=== PATIENT | female | born 1950 | race Caucasian/White ===

== ENCOUNTER 2020-02-09 10:07 | Outpatient (CLI) | payer MEDICARE, SELFPAY ==
[2020-02-09 10:34] LABS: Basophils Absolute Auto 0.04 K/mm3 (0.00-0.10); Basophils Percent Auto 0.6 % (0.0-1.0); Eosinophils Absolute Auto 0.24 K/mm3 (0.02-0.50); Eosinophils Percent Auto 3.5 % (1.0-6.0); Hematocrit 45.3 % (35.0-42.0); Hemoglobin 14.8 g/dL (11.7-13.8); Immature Granulocyte Absolute 0.01 K/mm3 (0.00-0.00); Immature Granulocyte Percent A 0.1 % (0.0-0.0); Lymphocytes Absolute Auto 1.58 K/mm3 (1.10-4.50); Lymphocytes Percent Auto 23.1 % (18.0-42.0); Mean Corpuscular HGB Conc 32.7 g/dL (32.0-36.0); Mean Corpuscular Volume 91.9 fL (78.0-102.0); Mean Platelet Volume 10.2 fl (9.2-11.8); Monocytes Absolute Auto 0.62 K/mm3 (0.10-0.90); Monocytes Percent Auto 9.1 % (2.0-11.0); Neutrophils Absolute Auto 4.4 K/mm3 (1.7-7.2); Neutrophils Percent Auto 63.6 % (50.0-70.0); Platelet Count Result 206 K/mm3 (150-420); Red Blood Count 4.93 M/mm3 (4.20-5.40); White Blood Count 6.9 K/mm3 (4.8-10.8)
[2020-02-09 11:11] LABS: Alanine Aminotransferase 20 U/L (14-59); Albumin Level 3.7 g/dL (3.4-5.0); Alkaline Phosphatase 110 U/L (46-116); Anion Gap 8.7 mmol/L (7-16); Aspartate Amino Transferase 22 U/L (15-37); Bilirubin,Total 0.5 mg/dL (0.00-1.00); Blood Urea Nitrogen 16 mg/dL (7-18); Calcium 9.7 mg/dL (8.5-10.1); Carbon Dioxide 33 mmol/L (21-32); Chloride 101 mmol/L (98-108); Cholesterol 179 mg/dL (0-200); Estimated Glomerular Filt Rate 53; Glucose 83 mg/dL (70-99); HDL Direct 108 mg/dL (40-60); LDL Cholesterol Calculated 61 mg/dL (<130); Osmolality Calculated 288 mOsm/kg (285-295); Potassium 3.7 mmol/L (3.5-5.1); Sodium 139 mmol/L (136-145); Total Protein 7.4 g/dL (6.4-8.2); Triglycerides 52 mg/dL (0-150)
== END 2020-02-09 10:08 | disposition home or self-care (01) ==
PROVIDERS: PCP Nurse Practitioner Family; Visit Provider Nurse Practitioner Family
DX: E78.5 Hyperlipidemia, unspecified (principal); I10 Essential (primary) hypertension; Z00.00 Encounter for general adult medical examination without abnormal findings
CPT/HCPCS: 36415; 80053; 80061; 85025

== ENCOUNTER 2020-02-10 14:00 | Outpatient (CLI) | payer MEDICARE, SELFPAY ==
--- NOTE | ~2020-02-10 | MM_ITS ---
EXAMINATION: MM screening nicole BI w joel HISTORY: Screening mammogram TECHNIQUE: Craniocaudal and mediolateral oblique 3-D tomosynthesis images were obtained and synthetic 2-D images were generated. CAD analysis was submitted and interpreted. COMPARISON: 05/31/2018 BREAST PARENCHYMAL COMPOSITION: There are scattered areas of fibroglandular density. FINDINGS: There is no evidence of suspicious mass, calcification, or architectural distortion to sugg est malignancy in either breast. There has been no suspicious interval change. IMPRESSION: 1. No mammographic evidence of malignancy. 2. Recommend routine screening mammography in one year. BI-RADS Category 1: Negative Reviewed, dictated and finalized at location A.
== END 2020-02-10 14:01 | disposition home or self-care (01) ==
LOC: CHSIMG 14:01
PROVIDERS: PCP Nurse Practitioner Family; Visit Provider Nurse Practitioner Family
DX: Z12.31 Encounter for screening mammogram for malignant neoplasm of breast (principal)
CPT/HCPCS: 77063; 77067

== ENCOUNTER 2020-05-06 16:20 | Outpatient (CLI) | payer MEDICARE, MEDICAID, SELFPAY ==
--- NOTE | 2020-05-06 16:22 | ECG_ITS ---
Measurements Intervals [place] Rate: 76 P: 76 [place]: 191 QRS: 52 QRSD: 77 T: 50 QT: 360 QTc: 406 Interpretive Statements SINUS RHYTHM ATRIAL PREMATURE COMPLEX CANNOT RULE OUT SEPTAL INFARCT, AGE INDETERMINATE ABNORMAL ECG Electronically Signed On 05-06-2020 16:50:16 CDT by Rio Hernandez D.O.
== END 2020-05-06 16:21 | disposition home or self-care (01) ==
LOC: CHSCARD 16:22
PROVIDERS: PCP Family Medicine; Visit Provider Family Medicine
DX: R00.2 Palpitations (principal)
CPT/HCPCS: 93005

== ENCOUNTER 2020-05-10 09:52 | Outpatient (CLI) | payer MEDICARE, MEDICAID, SELFPAY ==
--- NOTE | 2020-05-12 13:02 | WPDHOLTEREM ---
Holter/Event Monitor Holter/Event Monitor Date of procedure: 05/10/20 Procedure Type: 48 hour holter monitor Indications: Syncope Conclusion: 1. 48 hour holter monitor on 05/10/20. 2. Predominant rhythm is sinus rhythm. HR range 44-162 bpm; average HR 72. 3. No premature supraventricular complexes. There are 6 episodes of atrial fibrillation; fastest at 162 bpm and longest lasting 38 seconds. Total burden is 0.1%. 4. There are 67 premature ventricular complexes and 2 ventricular couplets. No ventricular tachycardia. 5. No sinoatrial or atrioventricular blocks. No significant pauses greater than 2 seconds. 6. No symptoms available for correlation.
== END 2020-05-10 09:53 | disposition home or self-care (01) ==
LOC: CHSCARD 09:54
PROVIDERS: PCP Family Medicine; Visit Provider Family Medicine
DX: R55 Syncope and collapse (principal); R00.2 Palpitations
CPT/HCPCS: 93225; 93226

== ENCOUNTER 2020-10-11 13:22 | Emergency (ER) | payer MEDICARE, MEDICAID, SELFPAY ==
--- NOTE | ~2020-10-11 | XR_ITS ---
EXAMINATION: XR hip LT min 2V EXAM DATE: 10/11/2020 14:18 INDICATION: Fall, left hip pain- best obtainable, xtbl portable exam. TECHNIQUE: Left hip frontal, crosstable lateral projections for interpretation. There is no prior s tudy for comparison. FINDINGS: Smooth left hip femoral head contour, no radiographic evidence of avascular necrosis. Acu te closed posttraumatic left femoral neck fracture with superior impaction into the femoral head Calc ifications in the pelvis are believed to be phleboliths. IMPRESSION: Acute left femoral neck fracture, impaction. Reviewed, dictated and finalized at location A.
[2020-10-11 13:22] VITALS: BP 175/90; PULSE 64; RESP 20; TEMP 36.8; O2SAT 98
--- NOTE | 2020-10-11 13:26 | ED.FALL ---
HPI - Fall General Chief Complaint: Extremity Injury, Lower Stated Complaint: ambulance Time Seen by Provider: 10/11/20 13:26 Source: patient, EMS and RN notes reviewed Mode of arrival: EMS Limitations: no limitations History of Present Illness complaint: fall Onset (ago): day(s) (1) Fall from: standing Fall witnessed: no Place fall occurred: home Loss of consciousness: none Prolonged down time: no Symptoms prior to fall: none Context: tripped/slipped Location of injury: pelvis (left hip) Severity: moderate Quality: sharp Associated symptoms (after fall): unable to walk Related Data Home Medications Medication Instructions Recorded Confirmed aspirin 81 mg tablet,delayed 81 mg PO DAILY 02/09/20 10/11/20 release calcium carbonate-vitamin D3 600 2 tablet PO DAILY tablet 02/09/20 10/11/20 mg (1,500 mg)-800 unit tablet tiotropium bromide 2.5 2 puff INHALATION DAILY 02/09/20 10/11/20 mcg/actuation mist for inhalation Brovana 15 mcg INHALATION BID 10/11/20 10/11/20 budesonide 0.5 mg INHALATION BID 10/11/20 10/11/20 Allergies Allergy/AdvReac Type Severity Reaction Status Date / Time No Known Allergies Allergy Verified 05/17/20 11:18 Review of Systems Review of Systems: All systems reviewed & are unremarkable except as noted in HPI and below PMFSH Past Medical History Medical History Afib Asthma 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; COPD (chronic obstructive pulmonary disease) GERD (gastroesophageal reflux disease) HTN (hypertension) Hyperlipidemia Surgical History Surgical History H/O dilation and curettage Family History Family History Father Hypertension Cerebrovascular accident Mother Hypertension Cerebrovascular accident Brother Hypertension Father Hypertension Sister Hypertension Family history of chronic obstructive pulmonary disease Mother Hypertension Social History Social History Smoking status: Former smoker Smoking end date: 07/30/17 Alcohol intake: never Substance use: never Substance use type: does not use Exam Const: General: healthy appearing and no acute distress Nutritional Appearance: well nourished Orientation/consciousness: patient oriented x3 HENMT: Head: normal to inspection Ears: external ears normal Eyes: Conjunctivae: conjunctivae normal Pupils: Equal, round and reactive pupils present EOM: EOMs intact bilaterally Neck: Neck: normal visual inspection Resp: Effort & Inspection: normal respiratory effort Auscultation: wheezes expiratory wheezes (right base) Cardio: Rate: regular rate Rhythm: regular rhythm GI: GI Palp: Yes Soft to palpation, No Tenderness to palpation present (GI), No Guarding due to palpation present (GI) and No Rigid due to palpation Auscultation: normal bowel sounds Back/Spine/Pelvis: Cervical Spine: cervical ROM normal Thoracic/Lumbar Spine: thoraco-lumbar ROM normal Skin: General skin exam: normal color Rashes: no rashes Neuro: General: patient oriented x3 Speech: normal speech Gait exam (Neuro): Normal gait present Extrem: Left lower extremity: hip/thigh Details: tenderness Location: of the hip Location: laterally, anteriorly and over the great trochanter and deformity Location: of the hip ( Externally rotated and shortened.) Psych: Appearance: grossly normal and well kempt Mental Status: mental status grossly normal Affect: normal affect Attitude: cooperative Thought content: Yes Normal thought content present Course Vital Signs Vital signs: Vital Signs Temperature 36.8 C 10/11/20 13:22 Pulse Rate 64 10/11/20 13:22 Respiratory Rate 20 10/11/20 13:22 Blood Pressure 175/90 H 10/11/20 13:22 Pulse Oximetry 98 10/11/20 13:22 Temperature 36.8 C 03
[2020-10-11 13:55] LABS: Basophils Absolute Auto 0.04 K/mm3 (0.00-0.10); Basophils Percent Auto 0.4 % (0.0-1.0); Eosinophils Absolute Auto 0.21 K/mm3 (0.02-0.50); Hemoglobin 13.9 g/dL (11.7-13.8); Immature Granulocyte Absolute 0.04 K/mm3 (0.00-0.00); Immature Granulocyte Percent A 0.4 % (0.0-0.0); Lymphocytes Absolute Auto 0.96 K/mm3 (1.10-4.50); Lymphocytes Percent Auto 9.3 % (18.0-42.0); Mean Corpuscular HGB Conc 33.9 g/dL (32.0-36.0); Mean Corpuscular Hemoglobin 31.2 pg (27.0-31.0); Mean Corpuscular Volume 92.1 fL (78.0-102.0); Mean Platelet Volume 9.6 fl (9.2-11.8); Monocytes Absolute Auto 0.56 K/mm3 (0.10-0.90); Monocytes Percent Auto 5.5 % (2.0-11.0); Neutrophils Absolute Auto 8.5 K/mm3 (1.7-7.2); Neutrophils Percent Auto 82.4 % (50.0-70.0); Platelet Count Result 184 K/mm3 (150-420); Red Blood Count 4.45 M/mm3 (4.20-5.40); Red Cell Distribution Width 12.5 % (11.6-14.4); White Blood Count 10.3 K/mm3 (4.8-10.8)
--- NOTE | 2020-10-11 13:59 | PC.NURSE ---
REPORT TO LUIS FERNANDO FAGAN RN
[2020-10-11 14:07] LABS: INR 1.1; Partial Thromboplastin Time 30.6 SEC (23.90-30.70)
[2020-10-11 14:08] LABS: Alanine Aminotransferase 19 U/L (14-59); Albumin Level 3.2 g/dL (3.4-5.0); Alkaline Phosphatase 84 U/L (46-116); Anion Gap 8 mmol/L (8-16); Aspartate Amino Transferase 27 U/L (15-37); Bilirubin,Total 0.7 mg/dL (0.00-1.00); Blood Urea Nitrogen 14 mg/dL (7-18); Calcium 9.2 mg/dL (8.5-10.1); Carbon Dioxide 32 mmol/L (21-32); Chloride 96 mmol/L (98-108); Estimated CRCL calculation 35 ml/min; Estimated Glomerular Filt Rate 51; Glucose 105 mg/dL (70-99); Osmolality Calculated 282 mOsm/kg (285-295); Potassium 3.1 mmol/L (3.5-5.1); Sodium 136 mmol/L (136-145)
[2020-10-11] MEDS: HYDROmorphone HCL INJ (*CRX) 2 MG/ML VIAL 1 MG IV PUSH ×2 (14:09→14:44)
[2020-10-11 14:47] VITALS: BP 128/75; PULSE 58; RESP 16; TEMP 36.4; O2SAT 96
--- NOTE | 2020-10-11 15:07 | PC.NURSE ---
1410 No beds at [facility], none in future 1415 pt req linh's next 1420good pedal pulses, toes leo well 1450 phone consent from son for transfer
--- NOTE | 2020-10-11 15:21 | PC.NURSE ---
Son notified of room at [facility]
[2020-10-11 15:24] VITALS: BP 126/70; PULSE 60; RESP 16; O2SAT 97
[2020-10-11 15:42] VITALS: BP 128/70; PULSE 60; RESP 16; TEMP 36.6; O2SAT 96
== END 2020-10-11 15:46 | disposition short-term general hospital (02) ==
PROVIDERS: Emergency Provider Emergency Medicine; PCP Nurse Practitioner Family
DX: S72.002A Fracture of unspecified part of neck of left femur, initial encounter for closed fracture (principal); W01.0XXA Fall on same level from slipping, tripping and stumbling without subsequent striking against object, initial encounter; I48.91 Unspecified atrial fibrillation; J44.9 Chronic obstructive pulmonary disease, unspecified; K21.9 Gastro-esophageal reflux disease without esophagitis; I10 Essential (primary) hypertension; E78.5 Hyperlipidemia, unspecified; Z87.891 Personal history of nicotine dependence
CPT/HCPCS: 36415; 73502; 80053; 85025; 85610; 85730; 96374; 96376; 99285; J1170

== ENCOUNTER 2020-11-10 09:02 | Emergency (ER) | payer MEDICARE, MEDICAID, SELFPAY ==
--- NOTE | ~2020-11-10 | XR_ITS ---
EXAMINATION: XR chest 1V portable INDICATION: Hypertension TECHNIQUE: Portable AP chest at 0935 hours COMPARISON: 08/23/2018 FINDINGS: The lungs are free of acute opacities. There is no pleural effusion or pneumothorax. The ca rdiomediastinal silhouette is normal. Plate and screw fixation is noted in the proximal left humerus. IMPRESSION: 1. No acute cardiopulmonary abnormality. Reviewed, dictated and finalized at location B.
[2020-11-10 09:02] VITALS: BP 149/97; PULSE 74; RESP 14; TEMP 36.9; O2SAT 100
--- NOTE | 2020-11-10 09:10 | ECG_ITS ---
Measurements Intervals [place] Rate: 96 P: [place]: 0 QRS: 38 QRSD: 78 T: 42 QT: 369 QTc: 468 Interpretive Statements ATRIAL FIBRILLATION BASELINE ARTIFACT- I, II, III ABNORMAL ECG Electronically Signed On 11-10-2020 12:18:29 CDT by Rio Hernandez D.O.
[2020-11-10 09:40] LABS: Basophils Absolute Auto 0.02 K/mm3 (0.00-0.10); Basophils Percent Auto 0.3 % (0.0-1.0); Eosinophils Absolute Auto 0.14 K/mm3 (0.02-0.50); Eosinophils Percent Auto 1.9 % (1.0-6.0); Hematocrit 31.4 % (35.0-42.0); Immature Granulocyte Absolute 0.03 K/mm3 (0.00-0.00); Immature Granulocyte Percent A 0.4 % (0.0-0.0); Lymphocytes Absolute Auto 0.62 K/mm3 (1.10-4.50); Lymphocytes Percent Auto 8.6 % (18.0-42.0); Mean Corpuscular HGB Conc 31.8 g/dL (32.0-36.0); Mean Corpuscular Hemoglobin 29.9 pg (27.0-31.0); Mean Platelet Volume 9.2 fl (9.2-11.8); Monocytes Percent Auto 8.3 % (2.0-11.0); Neutrophils Absolute Auto 5.8 K/mm3 (1.7-7.2); Neutrophils Percent Auto 80.5 % (50.0-70.0); Platelet Count Result 219 K/mm3 (150-420); Red Blood Count 3.34 M/mm3 (4.20-5.40); Red Cell Distribution Width 13.4 % (11.6-14.4); White Blood Count 7.3 K/mm3 (4.8-10.8)
[2020-11-10 09:46] VITALS: BP 139/81; PULSE 56; RESP 21; O2SAT 100
[2020-11-10 09:54] LABS: Alanine Aminotransferase 16 U/L (14-59); Albumin Level 2.7 g/dL (3.4-5.0); Alkaline Phosphatase 91 U/L (46-116); Anion Gap 8 mmol/L (8-16); Aspartate Amino Transferase 19 U/L (15-37); Bilirubin,Total 0.4 mg/dL (0.00-1.00); Blood Urea Nitrogen 11 mg/dL (7-18); Calcium 8.5 mg/dL (8.5-10.1); Carbon Dioxide 31 mmol/L (21-32); Chloride 94 mmol/L (98-108); Estimated CRCL calculation 40 ml/min; Estimated Glomerular Filt Rate > 60; Glucose 115 mg/dL (70-99); Osmolality Calculated 276 mOsm/kg (285-295); Potassium 3.6 mmol/L (3.5-5.1); Sodium 133 mmol/L (136-145); Total Protein 6.4 g/dL (6.4-8.2); Troponin I 19.4 ng/L (0.00-60.4)
[2020-11-10 09:55] LABS: BNP 436 pg/mL (0-100); Magnesium 1.6 mg/dL (1.8-2.4)
[2020-11-10] MEDS: MAG HYDROX/ALUMINUM HYD/SIMETH 30 ML, PHENobarb/HYOSCY/ATROPINE/SCOP 32.4 MG, LIDOCAINE... PO (09:58)
--- NOTE | 2020-11-10 10:01 | ED.GENADULT ---
HPI - General Adult General Chief complaint: Recheck/Abnormal Lab/Rx Stated complaint: CHEST PAIN Time Seen by Provider: 11/10/20 09:10 Source: patient Mode of arrival: other (patient's family physician) Limitations: no limitations History of Present Illness HPI narrative: Patient was brought over to ER by her family physician. He had seen her early thi Related Data Home Medications Medication Instructions Recorded Confirmed acetaminophen 650 mg 650 mg PO .Q4hrs PRN tablet 10/18/20 11/10/20 tablet,extended release albuterol sulfate 90 mcg/actuation 1 puff INHALATION Q4H PRN 10/18/20 11/10/20 aerosol inhaler aspirin 81 mg tablet,delayed 81 mg PO DAILY 10/18/20 11/10/20 release bisacodyl 5 mg tablet,delayed 5 mg PO QHS PRN 10/18/20 11/10/20 release fluticasone propionate 230 2 puff INHALATION Q12H 10/18/20 11/10/20 mcg-salmeterol 21 mcg/actuation HFA inhaler polyethylene glycol 3350 17 gram 17 g PO DAILY 10/18/20 11/10/20 oral powder packet Eliquis 5 mg PO BID 11/10/20 11/10/20 amiodarone 100 mg PO DAILY 11/10/20 11/10/20 atorvastatin 10 mg PO HS 11/10/20 11/10/20 diclofenac sodium [Voltaren] 2 g TOPICAL QID PRN 11/10/20 11/10/20 hydrocodone-acetaminophen [[place]] 1 tablet PO Q6H PRN 11/10/20 11/10/20 lisinopril 10 mg PO DAILY 11/10/20 11/10/20 metoprolol tartrate 25 mg PO BID 11/10/20 11/10/20 Allergies Allergy/AdvReac Type Severity Reaction Status Date / Time No Known Allergies Allergy Verified 11/10/20 08:44 [facility] Past Medical History Medical History Afib Asthma 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nce use type: does not use Course Vital Signs Vital signs: Vital Signs Temperature 36.9 C 11/10/20 09:02 Pulse Rate 74 11/10/20 09:02 Respiratory Rate 14 11/10/20 09:02 Blood Pressure 149/97 H 11/10/20 09:02 Pulse Oximetry 100 11/10/20 09:02 Temperature 36.9 C 11/10/20 09:02 Pulse Rate 56 L 11/10/20 09:46 Respiratory Rate 21 H 11/10/20 09:46 Blood Pressure 139/81 11/10/20 09:46 Pulse Oximetry 100 11/10/20 09:46 Medical Decision Making Vital Signs Vital Signs: Vital Signs Temperature 36.9 C 11/10/20 09:02 Pulse Rate 74 11/10/20 09:02 Respiratory Rate 14 11/10/20 09:02 Blood Pressure 149/97 H 11/10/20 09:02 Pulse Oximetry 100 11/10/20 09:02 Temperature 36.9 C 11/10/20 09:02 Pulse Rate 56 L 11/10/20 09:46 Respiratory Rate 21 H 11/10/20 09:46 Blood Pressure 139/81 11/10/20 09:46 Pulse Oximetry 100 11/10/20 09:46 Lab Data Result diagrams: 11/10/20 09:32 11/10/20 09:32 Labs: Lab Results 11/10/20 11/10/20 11/10/20 Range/Units 09:32 09:32 09:32 WBC 7.3 (4.8-10.8) K/mm3 RBC 3.34 L (4.20-5.40) M/mm3 Hgb 10.0 L (11.7-13.8) g/dL Hct 31.4 L (35.0-42.0) % MCV 94.0 (78.0-102.0) fL MCH 29.9 (27.0-31.0) pg MCHC 31.8 L (32.0-36.0) g/dL RDW 13.4 (11.6-14.4) % Plt Count 219 (150-420) K/mm3 MPV 9.2 (9.2-11.8) fl Immature Gran % (Auto) 0.4 H (0.0-0.0) % Neut % (Auto) 80.5 H (50.0-70.0) % Lymph % (Auto) 8.6 L (
[2020-11-10 10:06] LABS: Appearance Urine Clear (Clear); Bilirubin Urine Negative (Negative); Glucose Urine UA Negative (Negative); Ketones Urine Negative (Negative); Leukocyte Esterase Ur Negative (Negative); Nitrate Urine Negative (Negative); Protein Urine Negative (Negative); Specific Grav Ur 1.015 (1.010-1.020); Urobilinogen Urine 0.2 mg/dL (0.2-1.0); pH Urine 7.5 (5.0-8.0)
[2020-11-10 10:18] LABS: Add Urine Microscopic? YES; Bacteria Urine None seen /hpf; Blood Urine Trace-Intact (Negative); Color Urine Straw (Yellow); RBC Urine None seen /hpf (0-2); Squamous Epithelial Cell Urine Rare /hpf (Few); WBC Urine None seen /hpf (0-3)
[2020-11-10 10:34] VITALS: BP 149/83; PULSE 54; RESP 14; O2SAT 100
[2020-11-10] MEDS: MAGNESIUM OXIDE 400 MG TABLET PO (11:40)
[2020-11-10] MEDS: POTASSIUM BICARBONATE 25 MEQ TABEF 50 MEQ PO (11:44)
--- NOTE | 2020-11-10 13:17 | ED.GENADULT ---
HPI - General Adult General Chief complaint: Recheck/Abnormal Lab/Rx Stated complaint: CHEST PAIN Time Seen by Provider: 11/10/20 09:10 Source: patient Mode of arrival: other (family physician) Limitations: no limitations History of Present Illness HPI narrative: Patient is brought in this am by Dr Spears. She was [facility] the [facility] and had low chest / epigastric pain this am, which started earlier this am. The discomfort was was moderately severe. This appeared to be ongoing. Her blood pressure was elevated with this. She seemed pretty uncomfortable when Dr Spears was there. She had a similar episode two days ago. Severity: moderate Related Data Home Medications Medication Instructions Recorded Confirmed acetaminophen 650 mg 650 mg PO .Q4hrs PRN tablet 10/18/20 11/10/20 tablet,extended release albuterol sulfate 90 mcg/actuation 1 puff INHALATION Q4H PRN 10/18/20 11/10/20 aerosol inhaler aspirin 81 mg tablet,delayed 81 mg PO DAILY 10/18/20 11/10/20 release bisacodyl 5 mg tablet,delayed 5 mg PO QHS PRN 10/18/20 11/10/20 release fluticasone propionate 230 2 puff INHALATION Q12H 10/18/20 11/10/20 mcg-salmeterol 21 mcg/actuation HFA inhaler polyethylene glycol 3350 17 gram 17 g PO DAILY 10/18/20 11/10/20 oral powder packet Eliquis 5 mg PO BID 11/10/20 11/10/20 amiodarone 100 mg PO DAILY 11/10/20 11/10/20 atorvastatin 10 mg PO HS 11/10/20 11/10/20 diclofenac sodium [Voltaren] 2 g TOPICAL QID PRN 11/10/20 11/10/20 hydrocodone-acetaminophen [[place]] 1 tablet PO Q6H PRN 11/10/20 11/10/20 lisinopril 10 mg PO DAILY 11/10/20 11/10/20 metoprolol tartrate 25 mg PO BID 11/10/20 11/10/20 Allergies Allergy/AdvReac Type Severity Reaction Status Date / Time No Known Allergies Allergy Verified 11/10/20 08:44 Review of Systems Constitutional: Constitutional: Reports no additional constitutional complaints Eyes: Eyes: Reports no additional eye complaints ENT: Reports system reviewed and no additional complaints, except as documented Cardiovascular: Cardiovascular: Reports no additional cardiovascular complaints Comments: She specifically denies chest pain Respiratory: Respiratory: Reports no additional respiratory complaints Gastrointestinal: Gastrointestinal: Reports no additional gastrointestinal complaints Genitourinary: Genitourinary: Reports no additional female genitourinary complaints Musculoskeletal: Musculoskeletal: Reports no additional musculoskeletal complaints Integumentary/Breasts: Skin/Breast: Reports system reviewed and no additional complaints, except as docu Neurologic: Reports system reviewed and no additional complaints, except as documented Psychiatric: Psychiatric: Reports no additional psychiatric complaints Endocrine: Endocrine: Reports no additional endocrine complaints Hematologic/Lymphatic: Hematologic/Lymphatic: Reports no additional hematologic/lymphatic complaints Allergic/Immunologic: Allergic/Immunologic: Reports no additional allergic/immunologic complaints PMFSH Past Medical History Medical History Afib Asthma 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
[2020-11-10 13:24] LABS: Troponin I 20.9 ng/L (0.00-60.4)
[2020-11-10 13:41] VITALS: BP 146/82; PULSE 61; RESP 20; TEMP 36.6; O2SAT 99
== END 2020-11-10 13:43 ==
PROVIDERS: Emergency Provider Emergency Medicine; PCP Family Medicine
DX: R07.9 Chest pain, unspecified (principal); K21.9 Gastro-esophageal reflux disease without esophagitis; I48.91 Unspecified atrial fibrillation; J44.9 Chronic obstructive pulmonary disease, unspecified; I10 Essential (primary) hypertension; E78.5 Hyperlipidemia, unspecified; Z87.891 Personal history of nicotine dependence
CPT/HCPCS: 36415; 71045; 80053; 81001; 83735; 83880; 84484; 85025; 93005; 99283; 99284; A9270

== ENCOUNTER 2021-01-01 14:47 | Emergency (ER) | payer MEDICARE, MEDICAID, SELFPAY ==
--- NOTE | ~2021-01-01 | CT_ITS ---
EXAMINATION: CT brain wo con DATE: 01/01/2021 15:21 INDICATION: Patient found unresponsive. Possible stroke. TECHNIQUE: Computed tomography (CT) of the head was performed without intravenous contrast. The mA wa s adjusted according to patient size. Iterative reconstruction technique was employed. Exam dose: 60 5.33 mGy-cm total exam DLP. COMPARISON: 12/28/2017 CT head FINDINGS: The examination is limited due to patient motion with associated streak artifact on the 2 s ets of images that were obtained. Vertebral artery, basilar artery and bilateral carotid siphon internal carotid artery calcifications are noted. There is prominent diminished attenuation of the subcortical and periventricular cerebral white matter, likely due to chronic small vessel ischemic changes. Chronic lacunar infarct of left ba al ganglia and anterior limb of left internal capsule. These findings are all present on 12/28/2017. No apparent intracranial mass lesion or hemorrhage, midline shift or mass effect effect or subdural o r epidural hematoma or other acute intracranial finding is noted. No obvious skull fracture. IMPRESSION: Limited examination due to motion No acute intracranial finding is detected Cerebral atherosclerosis and probable chronic small vessel ischemic changes of cerebral white matter Old lacunar infarct of left basal ganglia and anterior limb of left internal capsule, stable since 12/28/2017/ Reviewed, dictated and finalized at Location [facility]. Reviewed, dictated and finalized at location A. IMPRESSION: Limited examination due to motion No acute intracranial finding is detected Cerebral atherosclerosis and probable chronic small vessel ischemic changes of cerebral white matter Old lacunar infarct of left basal ganglia and anterior limb of left internal ca psule, stable since 12/28/2017/
--- NOTE | ~2021-01-01 | XR_ITS ---
XR chest 1V portable DATE: 01/01/2021 15:16 INDICATION: Dyspnea TECHNIQUE: Portable AP chest on 01/01/2021 at 1527 hours COMPARISON: 11/10/2020 portable AP chest at 0935 hours FINDINGS: Relatively lucent left mid and upper lung is again noted likely due at least in part to pne umothorax and probably emphysema as well. Small left apical pneumothorax is demonstrated. No pulmonary infiltrate or consolidation or pulmonary mass lesion is evident. No pleural effusion is evident. Aortic calcification and tortuosity. Heart size is not optimally evaluated on AP projection because of magnification. Bilateral cervical ribs, anomalous pseudoarticulation of right cervical rib. Diffuse osteopenia. Plate and screws of proximal left humerus. Probable bilateral chronic rotator cuff atrophy. IMPRESSION: Left pneumothorax Emphysema Aortic calcification and tortuosity Dr. Saenz telephoned the report including left pneumothorax on 01/01/2021 at 1533 hours to emergency nai m physician Dr. Wells Reviewed, dictated and finalized at location A. IMPRESSION: Left pneumothorax Emphysema Aortic calcification and tortuosity Dr. Saenz telephoned the report including left pneumothorax on 01/01/2021 at 1533 hours to emergency room physician Dr. Wells
--- NOTE | ~2021-01-01 | XR_ITS ---
XR chest 1V portable DATE: 01/01/2021 15:35 INDICATION: Endotracheal tube placement TECHNIQUE: Portable AP chest on 01/01/2021 at 1547 hours COMPARISON: 01/01/2021 portable AP chest at 1527 hours FINDINGS: Interval placement of an endotracheal tube, the tip near the rubén. Emergency room physici an Dr. Wells was notified by telephone by Dr. Saenz on 01/01/2021 at 1539 hours of ET tube position and recommendation for retraction of the ET tube approximately 2 to 3 cm. He was also notified that ther e is no pneumothorax. No pneumothorax is detected. Cardiomegaly. Aortic calcification and tortuosity. No pulmonary infiltrate or consolidation. IMPRESSION: ET tube tip at rubén; withdrawal 2 to 3 cm is recommended. Reviewed, dictated and finalized at location A.
[2021-01-01 14:50] VITALS: BP 90/29; PULSE 100; RESP 28; O2SAT 96
[2021-01-01 15:00] VITALS: BP 90/29; PULSE 100; RESP 28; O2SAT 96
--- NOTE | 2021-01-01 15:03 | ECG_ITS ---
Measurements Intervals [place] Rate: 98 P: 77 [place]: 171 QRS: 76 QRSD: 78 T: 75 QT: 366 QTc: 468 Interpretive Statements SINUS RHYTHM BORDERLINE ST ABNORMALITY- ANT/INF LEADS BASELINE ARTIFACT- I, II, III, AVR, AVL, AVF BORDERLINE ECG Electronically Signed On 01-01-2021 18:03:14 CDT by Rio Hernandez D.O.
[2021-01-01 15:11] LABS: Basophils Absolute Auto 0.05 K/mm3 (0.00-0.10); Basophils Percent Auto 0.6 % (0.0-1.0); Eosinophils Percent Auto 3.4 % (1.0-6.0); Hemoglobin 12.6 g/dL (11.7-13.8); Immature Granulocyte Absolute 0.04 K/mm3 (0.00-0.00); Immature Granulocyte Percent A 0.5 % (0.0-0.0); Lymphocytes Absolute Auto 3.37 K/mm3 (1.10-4.50); Lymphocytes Percent Auto 38.1 % (18.0-42.0); Mean Corpuscular HGB Conc 30.7 g/dL (32.0-36.0); Mean Corpuscular Hemoglobin 28.1 pg (27.0-31.0); Mean Corpuscular Volume 91.5 fL (78.0-102.0); Mean Platelet Volume 10.4 fl (9.2-11.8); Monocytes Absolute Auto 0.48 K/mm3 (0.10-0.90); Monocytes Percent Auto 5.4 % (2.0-11.0); Neutrophils Absolute Auto 4.6 K/mm3 (1.7-7.2); Platelet Count Result 207 K/mm3 (150-420); Red Blood Count 4.48 M/mm3 (4.20-5.40); White Blood Count 8.8 K/mm3 (4.8-10.8)
[2021-01-01 15:25] LABS: INR 1.1; Partial Thromboplastin Time 25.6 SEC (23.90-30.70); Prothrombin Time 11.9 Seconds (9.64-11.0)
[2021-01-01 15:30] LABS: Alanine Aminotransferase 20 U/L (14-59); Albumin Level 3.4 g/dL (3.4-5.0); Alkaline Phosphatase 94 U/L (46-116); Anion Gap 13 mmol/L (8-16); Aspartate Amino Transferase 26 U/L (15-37); Bilirubin,Total 0.3 mg/dL (0.00-1.00); Blood Urea Nitrogen 15 mg/dL (7-18); Calcium 9.4 mg/dL (8.5-10.1); Carbon Dioxide 26 mmol/L (21-32); Chloride 99 mmol/L (98-108); Estimated Glomerular Filt Rate 35; Ethanol < 3 mg/dL (0-6); Glucose 234 mg/dL (70-99); Osmolality Calculated 294 mOsm/kg (285-295); Sodium 138 mmol/L (136-145); Troponin I 31.7 ng/L (0.00-60.4)
--- NOTE | 2021-01-01 16:36 | ED.AMS ---
HPI - Altered Mental Status General Stated Complaint: ambulance Source: EMS Mode of arrival: EMS Limitations: altered mental status, physical limitation and clinical condition History of Present Illness HPI narrative: this is a 70-year-old female brought in by EMS with altered mental status and nonresponsive was moaning apparently the patient had a fall earlier today timing at about 2:15 p.m. EMS was called the patient was having difficulty with breathing, has a history of COPD and old CVA. EMS brought the patient into the ER and the patient was whisked to CT scan promptly because of eyes deviating to the left with left arm chronic flaccid. The patient initially was having shortness of breath and O2 sats in the 80s and was put on a non-rebreather mask. Otherwise patient was moaning unresponsive not moving her extremities on command. MD complaint: altered mental status, decreased responsiveness and weakness Onset (ago): hour(s) Time: 14:15 Timing confirmed by: family member Severity: severe Consistency of symptoms: getting Worse Context: COPD and other ( Old CVA) Related Data Home Medications Medication Instructions Recorded Confirmed acetaminophen 650 mg 650 mg PO .Q4hrs PRN tablet 10/18/20 11/25/20 tablet,extended release albuterol sulfate 90 mcg/actuation 1 puff INHALATION Q4H PRN 10/18/20 11/25/20 aerosol inhaler aspirin 81 mg tablet,delayed 81 mg PO DAILY 10/18/20 11/25/20 release bisacodyl 5 mg tablet,delayed 5 mg PO QHS PRN 10/18/20 11/25/20 release fluticasone propionate 230 2 puff INHALATION Q12H 10/18/20 11/25/20 mcg-salmeterol 21 mcg/actuation HFA inhaler polyethylene glycol 3350 17 gram 17 g PO DAILY 10/18/20 11/25/20 oral powder packet Eliquis 5 mg PO BID 11/10/20 11/25/20 amiodarone 100 mg PO DAILY 11/10/20 11/25/20 atorvastatin 10 mg PO HS 11/10/20 11/25/20 diclofenac sodium [Voltaren] 2 g TOPICAL QID PRN 11/10/20 11/25/20 hydrocodone-acetaminophen [[place]] 1 tablet PO Q6H PRN 11/10/20 11/25/20 lisinopril 10 mg PO DAILY 11/10/20 11/25/20 metoprolol tartrate 25 mg PO BID 11/10/20 11/25/20 Allergies Allergy/AdvReac Type Severity Reaction Status Date / Time No Known Allergies Allergy Verified 11/25/20 10:17 Review of Systems Review of Systems: All systems reviewed & are unremarkable except as noted in HPI and below PMFSH Past Medical History Medical History Afib Asthma 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; COPD (chronic obstructive pulmonary disease) HTN (hypertension) Hyperlipidemia Left displaced femoral neck fracture Surgical History Surgical History H/O dilation and curettage Status post total replacement of left hip Family History Family History Father Hypertension Cerebrovascular accident Mother Hypertension Cerebrovascular accident Brother Hypertension Father Hypertension Sister Hypertension Family history of chronic obstructive pulmonary disease Mother Hypertension Social History Social History Smoking status: Former smoker Smoking end date: 07/30/17 Alcohol intake: never Substance use: never Substance use type: does not use Exam Const: General: ill appearing Limitations: altered mental status, language barrier and physical limitations HENMT: Mouth: Yes dry mucous membranes Eyes: Conjunctivae: conjunctivae normal Pupils: Equal, round and reactive pupils present ( Sluggish to reaction to light) Neck: Neck: normal visual inspection, no lymphadenopathy and no meningeal signs Chest: Chest palpation & inspection: normal inspection of the chest Resp: Effort & Inspection: labored Auscultation: diminished lung sounds Cardio: Rate: regular rate and bradycardic GI: GI Palp: Yes Soft to palpation
--- NOTE | 2021-01-01 17:57 | PC.NURSE ---
[address] APARICIO PT HAS A 20 ON [facility] STROKE SCALE
--- NOTE | 2021-01-01 17:58 | PC.NURSE ---
1530 PT HEART RATE BEGAN TO DECREASE AND DR APARICIO CALLED TO ROOM AND CPR WAS STARTED AND FURTHER INFO IS ON CODE SHEET
== END 2021-01-01 15:47 | disposition expired ==
PROVIDERS: Emergency Provider Emergency Medicine; PCP Family Medicine
DX: I46.9 Cardiac arrest, cause unspecified (principal); I63.9 Cerebral infarction, unspecified; Z79.899 Other long term (current) drug therapy; I48.91 Unspecified atrial fibrillation; J44.9 Chronic obstructive pulmonary disease, unspecified; I10 Essential (primary) hypertension; E78.5 Hyperlipidemia, unspecified; Z87.891 Personal history of nicotine dependence
CPT/HCPCS: 31500; 36415; 36600; 37195; 70450; 71045; 80053; 80307; 84484; 85025; 85610; 85730; 92950; 93005; 99285; J0171; J0282; J0461; J2997; J7030